=== PATIENT | female | born 1970 | race African-American/Black ===

== ENCOUNTER 2018-04-26 13:58 | Emergency (ER) | payer MEDICARE, MEDICAID ==
[~2018-04-26] VITALS: Ht 162.6 cm; Wt 60.0 kg
[~2018-04-26 13:58] MED LIST: FERR-63 PO; FOLI0.4T2 PO
[2018-04-26] MEDS ORDERED: MORPHINE SULFATE 4 MG/ML CPJ (NOT FOR IM USE) IV STA (14:18)
[2018-04-26] MEDS ORDERED: ONDANSETRON HCL 4MG/2ML INJ IV STA (14:18)
[2018-04-26 14:55] LABS: HEMATOCRIT. 33.5 % (36.0-48.0); HEMOGLOBIN. 11.1 g/dL (12.0-16.0); MEAN CORPUSCULAR HEMOGLOBIN 26.6 pg (28.0-32.0); MEAN CORPUSCULAR VOLUME 80.1 fL (81.0-99.0); MEAN PLATELET VOLUME 8.5 fl (7.4-10.4); PLATELET 135 x1000/uL (130-400); RED BLOOD CELL COUNT 4.18 mill/uL (4.2-5.4); RED CELL DISTRIBUTION WIDTH 22.3 % (11.6-14.6)
[2018-04-26] MEDS ORDERED: SODIUM CHLORIDE 0.9% 1,000 ML IV ONE (14:59)
[2018-04-26 15:00] LABS: CHLORIDE 108 mEq/L (98-107); INR 1.1; PROTHROMBIN TIME 10.7 sec (9.1-11.1)
[2018-04-26 15:42] LABS: PLATELET ESTIMATE NORMAL
[2018-04-26] MEDS ORDERED: HYDROMORPHONE HCL/PF 2MG/ML CPJ IV ONE (16:00)
[2018-04-26] MEDS ORDERED: IOHEXOL-300 100 ML BOTTLE ONE (16:45)
[2018-04-26] MEDS ORDERED: ONDANSETRON HCL 4MG/2ML INJ IV ONE (18:00)
[2018-04-26 19:15] LABS: CLARITY URINE CLEAR (CLEAR); COLOR URINE YELLOW (YELLOW); KETONES URINE NEGATIVE (NEGATIVE); LEUKOCYTE ESTERASE URINE NEGATIVE (NEGATIVE); NITRITE URINE NEGATIVE (NEGATIVE); OCCULT BLOOD URINE 3+ (NEGATIVE); PROTEIN URINE NEGATIVE (NEGATIVE); SPECIFIC GRAVITY URINE 1.037 (1.005-1.030); UROBILINOGEN URINE 0.2 E.U./dL (0.2-1.0)
[2018-04-26] MEDS ORDERED: HYDROMORPHONE HCL/PF 2MG/ML CPJ IV NR (20:00)
[2018-04-26 21:36] VITALS: BP 123/55
== END 2018-04-26 22:24 | disposition home or self-care (01) ==
LOC: ER 13:58
DX: R10.33 Periumbilical pain (principal); R11.2 Nausea with vomiting, unspecified; C18.9 Malignant neoplasm of colon, unspecified; C78.7 Secondary malignant neoplasm of liver and intrahepatic bile duct; D57.1 Sickle-cell disease without crisis; R03.0 Elevated blood-pressure reading, without diagnosis of hypertension
CPT/HCPCS: 36415; 71045; 74177; 76705; 80053; 81003; 81025; 83605; 83690; 84484; 85025; 85044; 85610; 93005; 96361; 96374; 96375; 96376; 99285; J1170; J2270; J2405; J7030; Q9967

== ENCOUNTER 2018-10-22 18:54 | Inpatient (IN) | payer MEDICARE, MEDICAID ==
[~2018-10-22] VITALS: Ht 165.1 cm; Wt 63.7 kg
[2018-10-22 20:13] LABS: HEMATOCRIT. 35.5 % (36.0-48.0); HEMOGLOBIN. 11.4 g/dL (12.0-16.0); MEAN CORPUSCULAR HEMOGLOBIN 20.9 pg (28.0-32.0); MEAN CORPUSCULAR VOLUME 65.2 fL (81.0-99.0); MEAN PLATELET VOLUME 8.7 fl (7.4-10.4); PLATELET 199 x1000/uL (130-400); RED BLOOD CELL COUNT 5.46 mill/uL (4.2-5.4); RED CELL DISTRIBUTION WIDTH 25.1 % (11.6-14.6)
[2018-10-22] MEDS ORDERED: MORPHINE SULFATE 4 MG/ML CPJ (NOT FOR IM USE) IV ONE (20:15)
[2018-10-22 20:17] LABS: CHLORIDE 106 mEq/L (98-107)
[2018-10-22 20:21] LABS: PROTHROMBIN TIME 9.8 sec (9.1-11.1)
[2018-10-22 20:22] LABS: ETHANOL BLOOD < 10 mg/dL
[2018-10-22 20:24] LABS: HCG SCREEN NEGATIVE
[2018-10-22 20:37] LABS: CLARITY URINE CLEAR (CLEAR); COLOR URINE YELLOW (YELLOW); KETONES URINE TRACE (NEGATIVE); LEUKOCYTE ESTERASE URINE NEGATIVE (NEGATIVE); NITRITE URINE NEGATIVE (NEGATIVE); OCCULT BLOOD URINE NEGATIVE (NEGATIVE); PH URINE 5.5 (4.5-8.0); PROTEIN URINE TRACE (NEGATIVE); SPECIFIC GRAVITY URINE 1.025 (1.005-1.030); UROBILINOGEN URINE 0.2 E.U./dL (0.2-1.0)
[2018-10-22 20:45] LABS: PLATELET ESTIMATE NORMAL
[2018-10-22 20:49] LABS: *COCAINE SCREEN URINE NEGATIVE (NEGATIVE)
[2018-10-22 20:50] LABS: *AMPHETAMINES SCREEN URINE NEGATIVE (NEGATIVE); *BARBITURATES SCREEN URINE NEGATIVE (NEGATIVE); *BENZODIAZEPINES SCREEN URINE NEGATIVE (NEGATIVE); METHADONE URINE SCREEN NEGATIVE (NEGATIVE); OPIATES URINE SCREEN NEGATIVE (NEGATIVE); PHENCYCLIDINE URINE SCREEN NEGATIVE (NEGATIVE)
[2018-10-22 20:55] LABS: CANNABINOID URINE SCREEN PRESUMTIVE POSITIVE (NEGATIVE)
[2018-10-22] MEDS ORDERED: LEVETIRACETAM 1000MG/100ML 100 ML IV ONE (21:15)
[2018-10-22] MEDS ORDERED: IOHEXOL-350 100 ML BOTTLE ONE (21:44)
[2018-10-22] MEDS ORDERED: METOCLOPRAMIDE HCL 10MG/2ML VIAL IV ONE (22:45)
[2018-10-22] MEDS ORDERED: DIPHENHYDRAMINE 50MG/ML VIAL IV ONE (22:45)
[2018-10-23 05:51] VITALS: BP 120/77
[2018-10-23 06:00] VITALS: BP 101/71
[2018-10-23 08:00] VITALS: BP 113/68
[2018-10-23] MEDS ORDERED: LORAZEPAM 2MG/ML CPJ IV PRN (09:00)
[2018-10-23] MEDS ORDERED: IPRATROPIUM/ALBUTEROL 0.5-3(2.5)MG/3ML NEB INH PRN (09:00)
[2018-10-23 09:02] VITALS: BP 122/84
[2018-10-23] MEDS ORDERED: MORPHINE SULFATE 30MG TABLET SR PO PRN (09:45)
[2018-10-23] MEDS ORDERED: LEVETIRACETAM 500 MG in SODIUM CHLORIDE 0.9% 100 ML IV SCH (10:00)
[2018-10-23 11:07] LABS: HEMATOCRIT. 36.2 % (36.0-48.0); HEMOGLOBIN. 11.6 g/dL (12.0-16.0); MEAN CORPUSCULAR HEMOGLOBIN 20.8 pg (28.0-32.0); MEAN PLATELET VOLUME 8.6 fl (7.4-10.4); PLATELET 179 x1000/uL (130-400); RED BLOOD CELL COUNT 5.57 mill/uL (4.2-5.4); RED CELL DISTRIBUTION WIDTH 24.9 % (11.6-14.6)
[2018-10-23 11:11] LABS: CHLORIDE 105 mEq/L (98-107)
[2018-10-23] MEDS ORDERED: SODIUM CHLORIDE 0.9% INJ 3ML FLUSH IVF SCH (14:00)
[2018-10-24 10:36] LABS: PLATELET ESTIMATE NORMAL
== END 2018-10-23 11:00 | disposition left against medical advice (07) | DRG 100 ==
LOC: ER 18:54 → 3WST 21:03 → EDBEDREQTM 21:07 → EDBEDREQ 21:07 → EDBEDREQSVC 21:07 → ENRESERV 10-23 04:08
PROVIDERS: ADMIT Family Medicine; ATTEND Family Medicine
DX: R56.9 Unspecified convulsions (principal); G93.41 Metabolic encephalopathy; F80.9 Developmental disorder of speech and language, unspecified; Z85.038 Personal history of other malignant neoplasm of large intestine; Z85.05 Personal history of malignant neoplasm of liver; Z92.21 Personal history of antineoplastic chemotherapy; Z86.73 Personal history of transient ischemic attack (TIA), and cerebral infarction without residual deficits
CPT/HCPCS: 36415; 70496; 70498; 71045; 80305; 80320; 82962; 84484; 84703; 93005; 99285; J1200; J1953; J2270; J2765; J7050; Q9967; G0480

== ENCOUNTER 2019-04-18 21:10 | Emergency (ER) | payer MEDICARE, MEDICAID ==
[~2019-04-18] VITALS: Ht 160 cm; Wt 64.0 kg
[2019-04-18] MEDS ORDERED: SODIUM CHLORIDE 0.9% 500 ML IV ONE (21:30)
[2019-04-18 22:09] LABS: HEMATOCRIT. 32.5 % (36.0-48.0); HEMOGLOBIN. 10.8 g/dL (12.0-16.0); MEAN CORPUSCULAR HEMOGLOBIN 24.8 pg (28.0-32.0); MEAN CORPUSCULAR VOLUME 74.8 fL (81.0-99.0); MEAN PLATELET VOLUME 8.4 fl (7.4-10.4); PLATELET 141 x1000/uL (130-400); RED BLOOD CELL COUNT 4.35 mill/uL (4.2-5.4)
[2019-04-18 22:11] LABS: CHLORIDE 108 mEq/L (98-107)
[2019-04-18 22:26] LABS: PLATELET ESTIMATE NORMAL
[2019-04-19] MEDS ORDERED: KETOROLAC 15MG/ML VIAL IV NR
[2019-04-19] MEDS ORDERED: HYDROCODONE/ACETAMINOPHEN 5/325MG TABLET PO ONE
[2019-04-19 01:30] VITALS: BP 100/74
== END 2019-04-19 02:27 | disposition home or self-care (01) ==
LOC: ER 21:10
DX: R07.89 Other chest pain (principal); K21.9 Gastro-esophageal reflux disease without esophagitis; M79.602 Pain in left arm; D57.1 Sickle-cell disease without crisis; F17.200 Nicotine dependence, unspecified, uncomplicated; Z85.038 Personal history of other malignant neoplasm of large intestine; Z88.6 Allergy status to analgesic agent; Z88.5 Allergy status to narcotic agent; Z88.3 Allergy status to other anti-infective agents
CPT/HCPCS: 36415; 71045; 80053; 83880; 84484; 85025; 93005; 99284; J1885; J7040